=== PATIENT | male | born 1965 | race Caucasian/White ===

== ENCOUNTER 2019-07-15 17:15 | Observation (INO) ==
[2019-07-15 17:31] VITALS: BMI 29.2
--- NOTE | 2019-07-15 17:34 | CT ---
HISTORYVISUAL DISTURBANCE. HX CVASTUDYBRAIN W/O CONCOMPARISONPrevious head CT from 10/04/2016TECHNIQUEAxial imaging was performed from the vertex to the base of skull without intravenous contrast being administered. Sagittal and coronal reformations were generated. Automated exposure control techniques were used with this exam.FINDINGSThe posterior fossa and supratentorial region demonstrate no evidence of intracranial hemorrhage or extracerebral fluid collections. 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 There is mild dilatation of the ipsilateral frontal horn at the left lateral ventricle. An old lacunar infarct is also seen in the right basal ganglia. Patchy low density is present in a periventricular white matter distribution, consistent with chronic small vessel ischemia. On the bone windows, no acute bony abnormality is identified. Visualized aspect of the paranasal sinuses and mastoid air cells are clearIMPRESSIONNo acute intracranial abnormality is seen on this exam. Chronic findings as noted aboveElectronically signed by: JONY CORBETT (Jul 15, 2019 17:33:50)
[2019-07-15] MEDS ORDERED: CATAPRES TAB 0.2 MG PO ONE (17:39)
[2019-07-15] MEDS ORDERED: CATAPRES TAB 0.2 MG ONE (17:40)
--- NOTE | 2019-07-15 17:52 | DR.GENAD ---
HPI Time Seen Time Seen by Provider: 07/15/19 17:28 HPI Comment HPI Comment: PATIENT IS 54 YR OLD FEMALE IN ER WITH BLURRED VISSION AND DECREASE VISSION LEFT EYE 3 DAYS AGO THAT HAVE RESOLVED. TODAY, ATAXIA NOTED. HISTORY TIAS. NO FEVER. HAVING HEADACHE. NO TRAUMA. PATIENT IS WEAK. Complaint/Symptoms Chief Complaint Doctors Comments: BLURRED VISSION AND DECREASE VISION 3 DAYS AGO AND ATAXIA TODAY. Nurses notes reviewed Nurses Notes Review: Yes Source History Provided: Patient and Family Member Mode of Arrival Mode of Arrival: Stretcher Timing Came on: Suddenly Duration Duration: Constant Duration: Days Severity Severity: Moderate Modifying Factors Worsens:: TRYING TO WORK. Improves:: REST. Associated Signs and Symptoms Associated Signs and Symptoms: WEAKNESS. Other History Other History: HISTORY HYPERTENSION AND DM. ROS Review of Systems Constitutional: No Symptoms Reported and See HPI; negative Fever, Weakness and Fatigue Eyes: No Symptoms Reported, See HPI, Blurred Vision and Other (DECREASE VISION.); negative Photophobia and Diplopia ENTM: No Symptoms Reported and See HPI; negative Ear Pain, Nose Discharge, Nose Congestion and Throat Pain Respiratoy: See HPI and Short of Breath; negative Moist Cough and Wheezing Cardiovascular: No Symptoms Reported and See HPI; negative Chest Pain and Palpitations Gastrointestinal/Abdominal: No Symptoms Reported and See HPI; negative Abdominal Pain, Constipation, Diarrhea, Nausea and Vomiting Genitourinary: No Symptoms Reported and See HPI; negative Dysuria, Frequency and Hematuria Neurological: No Symptoms Reported, See HPI, Weakness and Problems Walking (IMBALANCE TODAY.) Musculoskeletal: No Symptoms Reported and See HPI; negative Back Pain and Muscle Pain Integumentary: No Symptoms Reported and See HPI; negative Change in Color, Rash and Juandice Hematologic/Lymphatic: No Symptoms Reported and See HPI; negative Easy Bruising and Swollen Glands Endocrine: No Symptoms Reported and See HPI; negative Increased Thirst, Increased Urine and Decreased Appetite Psychiatric: No Symptoms Reported and See HPI All Other Systems: Reviewed and Negative PE Vital Signs Vitals: Temperature 97.2 F Pulse Rate [Left Brachial] 64 Pulse Rate 69 Respiratory Rate 19 Blood Pressure [Left Arm] 153/94 Blood Pressure 143/82 O2 Sat by Pulse Oximetry 99 General Limitations: No Limitations General Appearance: Alert and In No Apparent Distress Head Head Exam: Normal Inspection Eyes Eye exam: Normal Appearance and PERRL; negative Scleral Icterus, Conjunctival Injection, Periorbital Swelling and Periorbital Tenderness ENT ENT Exam: Normal Exam, Normal Oropharynx, Normal External Ear Exam and TM's Normal Bilaterally External Ear Exam: Normal External Inspection; negative Mastoid Tenderness TM/Canal Exam: Bilateral: Normal Nose Exam: Normal Nose Exam; negative Sinus Tenderness, Nasal Deviation and Septal Hematoma Mouth Exam: Normal Inspection; negative Lip Swelling and Tongue Swelling Throat Exam: Normal Inspection; negative Tonsillar Erythema, Tonsillomegaly and Tonsillar Exudate Neck Neck Exam: Normal Inspection and Trachea Midline; negative Tenderness and Lymph adenopathy Chest Chest Inspection: Normal Inspection and Symmetric Chest Wall Rise; negative Tenderness Respiratory Respiratory Exam: Normal Lung Sounds Bilat; negative Accessory Muscle Use, Chest Wall Tenderness and Respiratory Distress Respiratory Exam: Bilateral: Clear to Auscultation Cardiovascular Cardiovascular Exam: Regular Rate, Normal Rhythm and Normal Heart Sounds; negative Systolic Murmur and Diastolic Murmur Abdominal Exam Abdominal Exam: Normal Inspection, Normal Bowel Sounds and Soft; negative Tenderness Extremities Extremities Exam: Normal Inspection and Normal Capillary Refill; negative Tenderness, Edema and Calf Tenderness Back Back Exam: Normal Inspection; negative Tenderness, (R) CVA Tenderness, (L) CVA Tenderness, Paraspinal Tenderness and Vertebral Tenderness Neurologic Neurological Exam: Alert, Oriented X3 and CN II-XII Intact; negative Motor Sensory Deficit Psychiatric Psychiatric Exam: Normal Affect and Normal Mood Skin Skin Exam: Warm, Dry, Intact and Normal Color MDM Additional Information Additional Information Obtained From: Family (SON.) Differential Diagnosis Differential Diagnosis: CVA, HYPERTENSIVE EMERGENCY, SD, TIA, PNEUMONIA, HYPERGLYCEMIA. COURSE Treatment Treatment: SEE ORDERS. Education/Counseling Education/Counseling: Patient and Family Educated On: Diagnosis and Needs for Follow Up ROR Labs Reviewed Laboratory Results Reviewed?: Yes Result Diagrams: 07/16/19 05:28 07/16/19 05:28 Laboratory: WBC 12.4 X10^3/uL (3.6-10.0) H 07/15/19 17:50 RBC 6.10 X10^6/uL (4.7-6.0) H 07/15/19 17:50 Hgb 19.1 g/dL (13.5-18.0) H* 07/15/19 17:50 Hct 54.2 % (42.0-54.0) H 07/15/19 17:50 MCV 88.8 fL (80.0-100.0) 07/15/19 17:50 MCH 31.3 pg (27.0-34.0) 07/15/19 17:50 MCHC 35.3 g/dL (33.0-35.0) H 07/15/19 17:50 RDW 13.5 % (11.6-16.5) 07/15/19 17:50 Plt Count 190 X10^3/uL (150.0-450.0) 07/15/19 17:50 MPV 8.8 fL (7.4-11.0) 07/15/19 17:50 Neut % (Auto) 71.9 % (42.0-75.0) 07/15/19 17:50 Lymph % (Auto) 20.9 % (21.0-51.0) L 07/15/19 17:50 Ralls % (Auto) 5.6 % (0.0-13.0) 07/15/19 17:50 Eos % (Auto) 0.9 % (0.9-2.9) 07/15/19 17:50 Baso % (Auto) 0.7 % (0.2-1.0) 07/15/19 17:50 Neut # (Auto) 8.9 x10^3/uL (2.2-4.8) H 07/15/19 17:50 Lymph # (Auto) 2.6 X10^3/uL (1.3-2.9) 07/15/19 17:50 Ralls # (Auto) 0.7 x10^3/uL (0.3-0.8) 07/15/19 17:50 Eos # (Auto) 0.1 x10^3/uL (0.0-0.2) 07/15/19 17:50 Baso # (Auto) 0.1 X10^3/uL (0.0-0.1) 07/15/19 17:50 Absolute Nucleated RBC 0.0 /100WBC 07/15/19 17:50 Sodium 134 mmol/L (136-145) L 07/15/19 17:50 Corrected Sodium 138 mmol/L (136-145) 07/15/19 17:50 Potassium 3.7 mmol/L (3.5-5.1) 07/15/19 17:50 Chloride 98 mmol/L (98-107) 07/15/19 17:50 Carbon Dioxide 26.2 mmol/L (21-32) 07/15/19 17:50 BUN 8 mg/dL (7-18) 07/15/19 17:50 Creatinine 1.00 mg/dL (0.70-1.30) 07/15/19 17:50 Est GFR (MDRD) Af Amer > 60 (>60) 07/15/19 17:50 Est GFR (MDRD) Non-Af > 60 (>60) 07/15/19 17:50 Glucose 287 mg/dL (65-99) H 07/15/19 17:50 Calcium 9.9 mg/dL (8.5-10.1) 07/15/19 17:50 Corrected Calcium TNP 07/15/19 17:50 Total Bilirubin 0.50 mg/dL (0.2-1.0) 07/15/19 17:50 AST 0 Units/L (15-37) L 07/15/19 17:50 ALT < 6 Units/L (12-78) L 07/15/19 17:50 Alkaline Phosphatase 54 Units/L (46-116) 07/15/19 17:50 Creatine Kinase 59 Units/L (39-308) 07/15/19 17:50 CK-MB (CK-2) 1.7 ng/mL (0-4.0) 07/15/19 17:50 CK/CKMB % Calc 2.9 % (<4) 07/15/19 17:50 Troponin I < 0.02 ng/mL (0-1.5) 07/15/19 17:50 Total Protein 7.0 g/dL (6.4-8.2) 07/15/19 17:50 Albumin 3.7 g/dL (3.4-5.0) 07/15/19 17:50 Globulin 3.3 g/dL (2.5-4.5) 07/15/19 17:50 Albumin/Globulin Ratio 1.1 Ratio (1.1-2.1) 07/15/19 17:50 Acetone, Semi-Quant Negative (NEGATIVE) 07/15/19 17:50 XRAY XRAY Interpreted by: Radiologist (REPORT NOTED AND DISCUSSED WITH PATIENT.) EKG Rate: 71 [place]: Normal Rhythm: NSR Block: IVCD ST: Nonsp Opioid Opioid Risk Tool Total: 0 Total Score Risk Category: Low Risk Copyright: Jorge A SAENZ predicting aberrant behaviors Diagnosis Discharge Problem: Polycythemia, Accelerated hypertension, Hyperglycemia Instructions Instructions: Fall Prevention in the Home, Adult, [id number] Hyperglycemia, Natx-bg-Ymie Steps to Quit Smoking, Reki-iu-Svji Type 2 Diabetes Mellitus, Self Care, Adult, [id number]-ud-[id number] Hypertension, Mgtr-ac-Tdqy Blood Glucose Monitoring, Adult Forms: Patient Portal
[2019-07-15 18:03] LABS: BASOPHILS # (AUTO) 0.1 X10^3/uL (0.0-0.1); BASOPHILS % (AUTO) 0.7 % (0.2-1.0); EOSINOPHILS # (AUTO) 0.1 x10^3/uL (0.0-0.2); MONOCYTES # (AUTO) 0.7 x10^3/uL (0.3-0.8); NEUTROPHILS # (AUTO) 8.9 x10^3/uL (2.2-4.8)
[2019-07-15 18:10] LABS: EOSINOPHILS % (AUTO) 0.9 % (0.9-2.9); HEMATOCRIT 54.2 % (42.0-54.0); LYMPHOCYTES # (AUTO) 2.6 X10^3/uL (1.3-2.9); LYMPHOCYTES % (AUTO) 20.9 % (21.0-51.0); MEAN CORPUSCULAR HEMOGLOBIN 31.3 pg (27.0-34.0); MEAN CORPUSCULAR HGB CONC 35.3 g/dL (33.0-35.0); MEAN CORPUSCULAR VOLUME 88.8 fL (80.0-100.0); MEAN PLATELET VOLUME 8.8 fL (7.4-11.0); MONOCYTES % (AUTO) 5.6 % (0.0-13.0); NEUTROPHILS % (AUTO) 71.9 % (42.0-75.0); PLATELET COUNT 190 X10^3/uL (150.0-450.0); RED CELL DISTRIBUTION WIDTH 13.5 % (11.6-16.5); WHITE BLOOD COUNT 12.4 X10^3/uL (3.6-10.0)
[2019-07-15 18:12] LABS: HEMOGLOBIN 19.1 g/dL (13.5-18.0)
[2019-07-15 18:30] LABS: BLOOD UREA NITROGEN 8 mg/dL (7-18); CALCIUM 9.9 mg/dL (8.5-10.1); CARBON DIOXIDE 26.2 mmol/L (21-32); CHLORIDE 98 mmol/L (98-107); COR NA(FOR HYPERGLY) 138 mmol/L (136-145); SODIUM 134 mmol/L (136-145); TROPONIN I < 0.02 ng/mL (0-1.5); eGFR NON BLACK RACES > 60 (>60)
[2019-07-15 18:33] LABS: ALANINE AMINOTRANSFERASE < 6 Units/L (12-78); ALBUMIN 3.7 g/dL (3.4-5.0); ALKALINE PHOSPHATASE 54 Units/L (46-116); CKMB % 2.9 % (<4); CREATINE KINASE 59 Units/L (39-308); CREATINE KINASE MB 1.7 ng/mL (0-4.0)
--- NOTE | 2019-07-15 18:34 | RAD ---
HISTORY:Shortness of breath, visual disturbanceStudy: Single view chestComparison:NoneFindings:No infiltrate, effusion, or pneumothorax identified .Cardiac and mediastinal contours are within normal limits .The soft tissues are intact .IMPRESSION:1. No acute cardiopulmonary abnormality.Electronically signed by: CADEN MUJICA (Jul 15, 2019 18:33:24)
[2019-07-15 18:42] LABS: ASPARTATE AMINO TRANSFERASE 0 Units/L (15-37)
[2019-07-15] MEDS ORDERED: VASOTEC INJ 2.5 MG VIAL IVP ONE (18:48)
[2019-07-15] MEDS ORDERED: NS 1000 ML 1,000 ML IV ONE (18:51)
[2019-07-15] MEDS ORDERED: NITROSTAT SL ONE (18:52)
[2019-07-15] MEDS ORDERED: NS 1000 ML 1,000 ML ONE (19:03)
[2019-07-15] MEDS ORDERED: VASOTEC INJ 2.5 MG VIAL ONE (19:04)
[2019-07-15 21:50] LABS: BILIRUBIN,URINE NEGATIVE (NEGATIVE); BLOOD/HEMOGLOBIN,URINE 1+ (NEGATIVE); GLUCOSE, URINE 4+ (NEGATIVE); KETONES,URINE 2+ (NEGATIVE); LEUKOCYTE ESTERASE ,URINE NEGATIVE (NEGATIVE); NITRITES,URINE NEGATIVE (NEGATIVE); PROTEIN,URINE 3+ (NEGATIVE); UROBILINOGEN,URINE NORMAL (NORMAL)
[2019-07-15 22:02] LABS: AMORPHOUS SEDIMENT,UR 1+ /HPF (NEGATIVE); APPEARANCE,URINE SLIGHTLY HAZY (CLEAR); BACTERIA,URINE TRACE /HPF (NEGATIVE); COLOR,URINE YELLOW (YELLOW); RBC,URINE 0-2 /HPF (0-3); SQUAMOUS EPITHELIAL CELL,UR RARE /HPF (NEGATIVE)
[2019-07-15 23:43] LABS: CKMB % 2.4 % (<4); CREATINE KINASE 62 Units/L (39-308); CREATINE KINASE MB 1.5 ng/mL (0-4.0); TROPONIN I < 0.02 ng/mL (0-1.5)
[2019-07-16] MEDS: HumuLIN R SUBCUT PRN ×2 (00:06→06:01)
[2019-07-16 06:21] LABS: ALANINE AMINOTRANSFERASE 12 Units/L (12-78); ALKALINE PHOSPHATASE 43 Units/L (46-116); ASPARTATE AMINO TRANSFERASE 8 Units/L (15-37); BLOOD UREA NITROGEN 11 mg/dL (7-18); CALCIUM 8.7 mg/dL (8.5-10.1); CARBON DIOXIDE 25.8 mmol/L (21-32); CHLORIDE 101 mmol/L (98-107); CHOL/HDL RATIO 10.4 (0.0-5.0); CHOLESTEROL 259 mg/dL (0-200); COR CA(FOR HYPOALB) 9.5 mg/dL (8.5-10.1); COR NA(FOR HYPERGLY) 141 mmol/L (136-145); CREATINE KINASE 40 Units/L (39-308); CREATINE KINASE MB 1.2 ng/mL (0-4.0); CREATININE 1.01 mg/dL (0.70-1.30); HDL CHOLESTEROL 25 mg/dL (40-60); SODIUM 136 mmol/L (136-145); TOTAL PROTEIN 5.7 g/dL (6.4-8.2); TRIGLYCERIDES 680 mg/dL (0-150); TROPONIN I < 0.02 ng/mL (0-1.5); eGFR NON BLACK RACES > 60 (>60)
[2019-07-16 06:30] LABS: BASOPHILS # (AUTO) 0.1 X10^3/uL (0.0-0.1); EOSINOPHILS # (AUTO) 0.2 x10^3/uL (0.0-0.2); EOSINOPHILS % (AUTO) 1.8 % (0.9-2.9); HEMATOCRIT 48.2 % (42.0-54.0); LYMPHOCYTES % (AUTO) 36.8 % (21.0-51.0); MEAN CORPUSCULAR HEMOGLOBIN 31.4 pg (27.0-34.0); MEAN CORPUSCULAR HGB CONC 35.2 g/dL (33.0-35.0); MEAN CORPUSCULAR VOLUME 89.1 fL (80.0-100.0); MEAN PLATELET VOLUME 9.2 fL (7.4-11.0); MONOCYTES # (AUTO) 0.6 x10^3/uL (0.3-0.8); MONOCYTES % (AUTO) 5.6 % (0.0-13.0); NEUTROPHILS % (AUTO) 54.8 % (42.0-75.0); PLATELET COUNT 168 X10^3/uL (150.0-450.0); RED BLOOD COUNT 5.41 X10^6/uL (4.7-6.0); RED CELL DISTRIBUTION WIDTH 13.9 % (11.6-16.5); WHITE BLOOD COUNT 10.8 X10^3/uL (3.6-10.0)
[2019-07-16] MEDS ORDERED: GLUCOPHAGE ONE (08:09)
[2019-07-16] MEDS ORDERED: PLAVIX PO SCH (09:00)
[2019-07-16] MEDS ORDERED: AMARYL TAB 4 MG PO SCH (09:00)
[2019-07-16] MEDS ORDERED: ASPIRIN EC 81 MG PO SCH (09:00)
[2019-07-16] MEDS ORDERED: GLUCOPHAGE PO SCH (09:00)
[2019-07-16] MEDS ORDERED: VASOTEC TAB 20 MG PO SCH (09:00)
[2019-07-16 12:43] VITALS: BP 116/57
[2019-07-16] MEDS ORDERED: SNACK - Diabetic Appropriate PO SCH (20:00)
== END 2019-07-16 12:30 | disposition home or self-care (01) ==
LOC: ICU 17:15 → ER 17:15 → ICU 22:50
PROVIDERS: ADMIT Obstetrics & Gynecology Obstetrics; ATTEND Obstetrics & Gynecology Obstetrics
CPT/HCPCS: 36415; 70450; 71010; 71045; 80053; 80061; 81001; 82009; 82550; 82553; 82728; 84484; 85025; 93005; 96365; 96374; 99195; 99284; A4216; G0378; J1815; J3490; J7030

== ENCOUNTER 2020-12-09 11:21 | Inpatient (IN) ==
[2020-12-09] MEDS ORDERED: ZOSYN VIAL 3.375 GRAMS 3.375 G in NS 100 ML IV + SPIKE MINIBAG* 100 ML IV ONE (12:20)
--- NOTE | 2020-12-09 12:24 | DR.EXTPAIN ---
HPI Time seen Time Seen by Provider: 12/09/20 12:22 PCP Primary Care Physician: Mert Complaint/Symptoms Chief Complaint Doctor Comments: 55 y/o male presents with left great toe being black for several months. Denies injury. Has a h/o DM, poor circulation. 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 Saw his PCP, Dr. sam, this AM, was sent here for further evaluation. Not c/o pain. States it bleeds at times. Chief Complaint:: Pt c/o " My only toe I've got has been black for several months." Pt states he has been seen for this several times and was told by Dr. Sam this am to come to ER. COVID-19 Coronavirus risk:travel/contact w/high risk person: No Has patient experienced Coronavirus symptoms: No Nurses notes reviewed Nurses Notes Review: Yes Source History Provided: Patient Mode of arrival Mode of Arrival: Wheelchair Timing Onset of Chief Complaint: 12/09/20 Associated signs and symptoms Associated Signs and Symptoms: None PMH PMH Past Medical History: Yes Past Medical History: Coronary Artery Disease, Dementia, Diabetes, Hypertension and DC Past Surgical History: Yes Surgical History: Angioplasty/Stents and Ortho Surgery Past Surgical History Comment: right aka Family History History of Family Medical Conditions: Yes Family Medical History: Diabetes Mellitus and Coronary Artery Disease Social History Does patient currently use any type of tobacco product: Yes Have you used tobacco products in the last 12 months: Yes Type of Tobacco Use: Cigarettes Does any household member use tobacco: No Alcohol Use: None Do you use any recreational Drugs:: No Lives With: Family Lives Where: Home Travel Risk Coronavirus risk:travel/contact w/high risk person: No Has patient experienced Coronavirus symptoms: No Infectious screening In the last 2 months have you had wt loss of >10#?: NO Have you had fever, night sweats or hemotysis?: No Have you traveled outside the country in the last 6 months?: No Isolation: Standard ROS Review of Systems Constitutional: No Symptoms Reported Eyes: No Symptoms Reported ENTM: No Symptoms Reported Respiratoy: No Symptoms Reported Cardiovascular: No Symptoms Reported Gastrointestinal/Abdominal: No Symptoms Reported Genitourinary: No Symptoms Reported Neurological: No Symptoms Reported Musculoskeletal: No Symptoms Reported Integumentary: No Symptoms Reported Hematologic/Lymphatic: No Symptoms Reported Psychiatric: No Symptoms Reported All Other Systems: Reviewed and Negative PE Vital Signs Vitals: Temperature 97.7 F Pulse Rate 83 Respiratory Rate 16 Blood Pressure [Left Arm] 168/86 Blood Pressure 100/67 O2 Sat by Pulse Oximetry 98 General Limitations: No Limitations General Appearance: Alert and In No Apparent Distress Eyes Eye exam: Normal Appearance ENT ENT Exam: Normal Exam Neck Neck Exam: Normal Inspection and Full ROM Respiratory Respiratory Exam: Normal Lung Sounds Bilat; negative Accessory Muscle Use and Respiratory Distress Cardiovascular Cardiovascular Exam: Regular Rate, Normal Rhythm and Normal Heart Sounds Abdominal Exam Abdominal Exam: Normal Inspection; negative Tenderness Extremities Extremities Exam: Other (R AKA. L great toe - with black distal phalanx, non tender. ) Neurological Neurological Exam: Alert, Oriented X3 and CN II-XII Intact Psychiatric Psychiatric Exam: Normal Affect Skin Skin Exam: Warm and Dry MDM Differential Diagnosis Differential Diagnosis: Other (gangrene, cellulitis, osteomyelitis) COURSE Treatment Treatment: 55 y/o male, has a black left great toe x months. Sent in by Dr. Sam, planning to admit. CTA of aorta with run off requested by Dr. Sam. Had same procedure done 2 months ago. Discussed case with Dr. Light. Reviewed the findings of the previous CTA with him, states do not need to repeat the study. 1402 - x-ray with some gas formation of great toe, + changes c/w osteomyelitis. Already give IV antibiotic after initial evaluation. Discussed with Dr. Sam, will admit. Consulted with Dr. Fitzgerald, will consult. ROR Labs Reviewed Laboratory Results Reviewed?: Yes Result Diagrams: 12/09/20 12:40 12/09/20 12:40 Laboratory: WBC 17.0 X10^3/uL (3.6-10.0) H 12/09/20 12:40 RBC 5.86 X10^6/uL (4.7-6.0) 12/09/20 12:40 Hgb 16.6 g/dL (13.5-18.0) 12/09/20 12:40 Hct 48.7 % (42.0-54.0) 12/09/20 12:40 MCV 83.1 fL (80.0-100.0) 12/09/20 12:40 MCH 28.4 pg (27.0-34.0) 12/09/20 12:40 MCHC 34.2 g/dL (33.0-35.0) 12/09/20 12:40 RDW 14.3 % (11.6-16.5) 12/09/20 12:40 Plt Count 204 X10^3/uL (150.0-450.0) 12/09/20 12:40 MPV 8.9 fL (7.4-11.0) 12/09/20 12:40 Neut % (Auto) 76.5 % (42.0-75.0) H 12/09/20 12:40 Lymph % (Auto) 15.8 % (21.0-51.0) L 12/09/20 12:40 [place] % (Auto) 6.3 % (0.0-13.0) 12/09/20 12:40 Eos % (Auto) 0.7 % (0.9-2.9) L 12/09/20 12:40 Baso % (Auto) 0.7 % (0.2-1.0) 12/09/20 12:40 Neut # (Auto) 12.9 x10^3/uL (2.2-4.8) H 12/09/20 12:40 Lymph # (Auto) 2.7 X10^3/uL (1.3-2.9) 12/09/20 12:40 [place] # (Auto) 1.1 x10^3/uL (0.3-0.8) H 12/09/20 12:40 Eos # (Auto) 0.1 x10^3/uL (0.0-0.2) 12/09/20 12:40 Baso # (Auto) 0.1 X10^3/uL (0.0-0.1) 12/09/20 12:40 Absolute Nucleated RBC 0.0 /100WBC 12/09/20 12:40 PT 12.2 SECONDS (11.8-14.3) 12/09/20 12:40 INR Target Range - 12/09/20 12:40 INR 0.95 (0.8-1.3) 12/09/20 12:40 APTT 29.2 SECONDS (22.9-36.5) 12/09/20 12:40 PTT Comment - 12/09/20 12:40 Sodium 135 mmol/L (136-145) L 12/09/20 12:40 Corrected Sodium 143 mmol/L (136-145) 12/09/20 12:40 Potassium 4.2 mmol/L (3.5-5.1) 12/09/20 12:40 Chloride 97 mmol/L (98-107) L 12/09/20 12:40 Carbon Dioxide 25.5 mmol/L (21-32) 12/09/20 12:40 BUN 18 mg/dL (7-18) 12/09/20 12:40 Creatinine 1.08 mg/dL (0.70-1.30) 12/09/20 12:40 Est GFR (MDRD) Af Amer > 60 (>60) 12/09/20 12:40 Est GFR (MDRD) Non-Af > 60 (>60) 12/09/20 12:40 Glucose 426 mg/dL (65-99) H 12/09/20 12:40 Calcium 9.3 mg/dL (8.5-10.1) 12/09/20 12:40 Corrected Calcium TNP 12/09/20 12:40 Total Bilirubin 0.50 mg/dL (0.2-1.0) 12/09/20 12:40 AST < 6 Units/L (15-37) L 12/09/20 12:40 ALT 18 Units/L (12-78) 12/09/20 12:40 Alkaline Phosphatase 86 Units/L (46-116) 12/09/20 12:40 Total Protein 7.7 g/dL (6.4-8.2) 12/09/20 12:40 Albumin 3.5 g/dL (3.4-5.0) 12/09/20 12:40 Globulin 4.2 g/dL (2.5-4.5) 12/09/20 12:40 Albumin/Globulin Ratio 0.8 Ratio (1.1-2.1) L 12/09/20 12:40 SARS-CoV-2 (PCR) Negative (NEGATIVE) 12/09/20 12:48 Influenza Type A (PCR) Negative (NEGATIVE) 12/09/20 12:48 Influenza Type B (PCR) Negative (NEGATIVE) 12/09/20 12:48 RSV (PCR) Negative (NEGATIVE) 12/09/20 12:48 XRAY XRAY Interpreted by: Radiologist X-ray Results: + ostemyelitis of great toe Opioid Opioid Risk Tool Age (Jagjit box if 16-45): No History of Preadolescent Sexual Abuse: No Total: 0 Total Score Risk Category: Low Risk Copyright: Jorge A SAENZ predicting aberrant behaviors Diagnosis Discharge Problem: Gangrene of toe of left foot, Osteomyelitis of great toe of left foot
[2020-12-09 12:51] LABS: BASOPHILS # (AUTO) 0.1 X10^3/uL (0.0-0.1); BASOPHILS % (AUTO) 0.7 % (0.2-1.0); EOSINOPHILS # (AUTO) 0.1 x10^3/uL (0.0-0.2); EOSINOPHILS % (AUTO) 0.7 % (0.9-2.9); HEMATOCRIT 48.7 % (42.0-54.0); HEMOGLOBIN 16.6 g/dL (13.5-18.0); LYMPHOCYTES # (AUTO) 2.7 X10^3/uL (1.3-2.9); LYMPHOCYTES % (AUTO) 15.8 % (21.0-51.0); MEAN CORPUSCULAR HEMOGLOBIN 28.4 pg (27.0-34.0); MEAN CORPUSCULAR HGB CONC 34.2 g/dL (33.0-35.0); MEAN CORPUSCULAR VOLUME 83.1 fL (80.0-100.0); MEAN PLATELET VOLUME 8.9 fL (7.4-11.0); MONOCYTES # (AUTO) 1.1 x10^3/uL (0.3-0.8); MONOCYTES % (AUTO) 6.3 % (0.0-13.0); NEUTROPHILS # (AUTO) 12.9 x10^3/uL (2.2-4.8); NEUTROPHILS % (AUTO) 76.5 % (42.0-75.0); PLATELET COUNT 204 X10^3/uL (150.0-450.0); RED BLOOD COUNT 5.86 X10^6/uL (4.7-6.0); RED CELL DISTRIBUTION WIDTH 14.3 % (11.6-16.5)
[2020-12-09] MEDS ORDERED: ZOSYN VIAL 3.375 GRAMS IV ONE (12:54)
[2020-12-09] MEDS ORDERED: NS 100 ML IV + SPIKE MINIBAG* 100 ML IV ONE (12:54)
[2020-12-09 13:19] LABS: BLOOD UREA NITROGEN 18 mg/dL (7-18); CALCIUM 9.3 mg/dL (8.5-10.1); CARBON DIOXIDE 25.5 mmol/L (21-32); CHLORIDE 97 mmol/L (98-107); COR NA(FOR HYPERGLY) 143 mmol/L (136-145); CREATININE 1.08 mg/dL (0.70-1.30); SODIUM 135 mmol/L (136-145); eGFR NON BLACK RACES > 60 (>60)
--- NOTE | 2020-12-09 13:30 | RAD ---
HISTORYBLACK GREAT TOESTUDYFOOT, [id number]/2021FINDINGSThere is soft tissue swelling, ulceration and soft tissue gas within the distal great toe. There is underlying osteolysis as well as fracture of the great toe distal tuft, compatible with osteomyelitis.No subchondral bone plate destruction of the great toe IP joint is currently appreciated to suggest septic arthritis. Mild hindfoot enthesopathy and DJD of the dorsal talonavicular joint noted.IMPRESSIONUlceration and gas gangrene of the distal great toe with underlying fracture and osteolysis of the great toe distal tuft, compatible with osteomyelitis.Recommend contrast enhanced MRI (of the forefoot only) to evaluate the extent of bone infection.Electronically signed by: SHERRELL CHAVEZ (Dec 09, 2020 13:28:39)
[2020-12-09] MEDS ORDERED: ZOFRAN INJ 4 MG VIAL ONE (14:06)
[2020-12-09] MEDS ORDERED: VERSED ONE ×2 (14:06)
[2020-12-09] MEDS ORDERED: DECADRON INJ ONE (14:06)
[2020-12-09] MEDS ORDERED: NORCURON INJ 10 MG VIAL ONE (14:06)
[2020-12-09] MEDS ORDERED: DIPRIVAN VIAL ONE ×2 (14:06)
[2020-12-09] MEDS ORDERED: TORADOL 30 MG VIAL ONE (14:06)
[2020-12-09] MEDS ORDERED: XYLOCAINE 1 % (PLAIN) ONE (14:06)
[2020-12-09 14:07] LABS: ALANINE AMINOTRANSFERASE 18 Units/L (12-78); ALBUMIN 3.5 g/dL (3.4-5.0); ALKALINE PHOSPHATASE 86 Units/L (46-116); ASPARTATE AMINO TRANSFERASE < 6 Units/L (15-37); TOTAL PROTEIN 7.7 g/dL (6.4-8.2)
[2020-12-09] MEDS ORDERED: KETALAR ONE (14:46)
[2020-12-09] MEDS: ZOSYN VIAL 2.25 GRAMS 2.25 G in NS 100 ML IV + SPIKE MINIBAG* 100 ML IV SCH ×2 (16:34→22:06)
[2020-12-09] MEDS: LR 1000 ML IV 1,000 ML IV SCH (16:46)
[2020-12-09] MEDS: ACTOS PO SCH (16:46)
[2020-12-09] MEDS: HumuLIN R SC PRN ×2 (16:46→20:14)
[2020-12-09] MEDS ORDERED: PHARMACY CONSULT - VANCOMYCIN XX SCH (17:00)
[2020-12-09] MEDS: VANCOMYCIN IV *PREMIX 1 G/200 ML BAG 1 G/200 ML PIGGYBACK IV SCH ×2 (17:35→20:13)
[2020-12-10] MEDS: LR 1000 ML IV 1,000 ML IV SCH ×5 (04:47→16:50)
[2020-12-10] MEDS: ZOSYN VIAL 2.25 GRAMS 2.25 G in NS 100 ML IV + SPIKE MINIBAG* 100 ML IV SCH ×3 (06:22→23:00)
[2020-12-10 06:23] LABS: BASOPHILS # (AUTO) 0.1 X10^3/uL (0.0-0.1); BASOPHILS % (AUTO) 0.6 % (0.2-1.0); EOSINOPHILS # (AUTO) 0.3 x10^3/uL (0.0-0.2); EOSINOPHILS % (AUTO) 2.2 % (0.9-2.9); HEMATOCRIT 43.3 % (42.0-54.0); HEMOGLOBIN 15.2 g/dL (13.5-18.0); LYMPHOCYTES # (AUTO) 2.9 X10^3/uL (1.3-2.9); LYMPHOCYTES % (AUTO) 21.7 % (21.0-51.0); MEAN CORPUSCULAR HEMOGLOBIN 28.8 pg (27.0-34.0); MEAN CORPUSCULAR HGB CONC 35.1 g/dL (33.0-35.0); MEAN CORPUSCULAR VOLUME 82.1 fL (80.0-100.0); MEAN PLATELET VOLUME 8.9 fL (7.4-11.0); MONOCYTES # (AUTO) 1.2 x10^3/uL (0.3-0.8); MONOCYTES % (AUTO) 9.1 % (0.0-13.0); NEUTROPHILS % (AUTO) 66.4 % (42.0-75.0); PLATELET COUNT 171 X10^3/uL (150.0-450.0); RED BLOOD COUNT 5.27 X10^6/uL (4.7-6.0); RED CELL DISTRIBUTION WIDTH 14.2 % (11.6-16.5); WHITE BLOOD COUNT 13.5 X10^3/uL (3.6-10.0)
[2020-12-10] MEDS: HumuLIN R SC PRN ×2 (06:23→20:19)
[2020-12-10 06:56] LABS: ALANINE AMINOTRANSFERASE 13 Units/L (12-78); ALBUMIN 2.8 g/dL (3.4-5.0); ALKALINE PHOSPHATASE 68 Units/L (46-116); ASPARTATE AMINO TRANSFERASE 7 Units/L (15-37); BLOOD UREA NITROGEN 12 mg/dL (7-18); CALCIUM 8.9 mg/dL (8.5-10.1); CARBON DIOXIDE 24.2 mmol/L (21-32); CHLORIDE 103 mmol/L (98-107); COR CA(FOR HYPOALB) 9.9 mg/dL (8.5-10.1); COR NA(FOR HYPERGLY) 140 mmol/L (136-145); CREATININE 0.84 mg/dL (0.70-1.30); SODIUM 135 mmol/L (136-145); TOTAL PROTEIN 6.4 g/dL (6.4-8.2); eGFR NON BLACK RACES > 60 (>60)
[2020-12-10] MEDS: ACTOS PO SCH (08:31)
[2020-12-10] MEDS: INVOKANA PO SCH (08:35)
[2020-12-10] MEDS: GLUCOPHAGE XR 24-HR PO SCH ×2 (08:44→20:18)
[2020-12-10 09:00] VITALS: BMI 20.3
[2020-12-10] MEDS: VANCOMYCIN IV *PREMIX 1 G/200 ML BAG 1 G/200 ML PIGGYBACK IV SCH ×2 (09:13→21:30)
[2020-12-10] MEDS ORDERED: NS 1000 ML 1,000 ML ONE (11:18)
[2020-12-10] MEDS ORDERED: POLYMYXIN B SULFATE ONE (12:00)
[2020-12-10] MEDS ORDERED: XYLOCAINE 1 % (PLAIN) ONE (12:00)
[2020-12-10] MEDS ORDERED: BETADINE SOLN ONE (12:03)
[2020-12-10] MEDS ORDERED: BACTROBAN TOPICAL OINT ONE (12:40)
[2020-12-10] MEDS ORDERED: PHARMACY COMMENT IV NR (20:30)
[2020-12-10 21:00] LABS: CREATININE 0.92 mg/dL (0.70-1.30)
[2020-12-11] MEDS: LR 1000 ML IV 1,000 ML IV SCH ×4 (00:45→21:41)
[2020-12-11] MEDS ORDERED: NORCO 5/325 MG TAB PO ONE (00:53)
[2020-12-11] MEDS ORDERED: NORCO 5/325 MG TAB ONE (00:57)
[2020-12-11] MEDS: HumuLIN R SC PRN (05:23)
[2020-12-11] MEDS: ZOSYN VIAL 2.25 GRAMS 2.25 G in NS 100 ML IV + SPIKE MINIBAG* 100 ML IV SCH ×3 (05:23→23:03)
[2020-12-11 06:21] LABS: BASOPHILS # (AUTO) 0.1 X10^3/uL (0.0-0.1); BASOPHILS % (AUTO) 0.9 % (0.2-1.0); EOSINOPHILS # (AUTO) 0.2 x10^3/uL (0.0-0.2); EOSINOPHILS % (AUTO) 1.4 % (0.9-2.9); LYMPHOCYTES % (AUTO) 22.5 % (21.0-51.0); MEAN CORPUSCULAR HEMOGLOBIN 28.5 pg (27.0-34.0); MEAN CORPUSCULAR HGB CONC 34.9 g/dL (33.0-35.0); MEAN CORPUSCULAR VOLUME 81.7 fL (80.0-100.0); MEAN PLATELET VOLUME 8.9 fL (7.4-11.0); MONOCYTES # (AUTO) 1.1 x10^3/uL (0.3-0.8); NEUTROPHILS # (AUTO) 9.1 x10^3/uL (2.2-4.8); NEUTROPHILS % (AUTO) 67.2 % (42.0-75.0); PLATELET COUNT 208 X10^3/uL (150.0-450.0); RED BLOOD COUNT 5.63 X10^6/uL (4.7-6.0); RED CELL DISTRIBUTION WIDTH 14.4 % (11.6-16.5); WHITE BLOOD COUNT 13.5 X10^3/uL (3.6-10.0)
[2020-12-11 06:27] LABS: ALANINE AMINOTRANSFERASE 11 Units/L (12-78); ALKALINE PHOSPHATASE 66 Units/L (46-116); ASPARTATE AMINO TRANSFERASE 10 Units/L (15-37); BLOOD UREA NITROGEN 12 mg/dL (7-18); CALCIUM 9.3 mg/dL (8.5-10.1); CARBON DIOXIDE 27.3 mmol/L (21-32); CHLORIDE 103 mmol/L (98-107); COR CA(FOR HYPOALB) 10.1 mg/dL (8.5-10.1); COR NA(FOR HYPERGLY) 139 mmol/L (136-145); CREATININE 0.88 mg/dL (0.70-1.30); SODIUM 137 mmol/L (136-145); TOTAL PROTEIN 6.8 g/dL (6.4-8.2); eGFR NON BLACK RACES > 60 (>60)
[2020-12-11] MEDS: GLUCOPHAGE XR 24-HR PO SCH ×3 (08:56→21:47)
[2020-12-11] MEDS: VANCOMYCIN IV *PREMIX 1 G/200 ML BAG 1 G/200 ML PIGGYBACK IV SCH ×2 (08:56→21:42)
[2020-12-11] MEDS: ACTOS PO SCH (08:56)
[2020-12-11] MEDS: INVOKANA PO SCH (08:56)
[2020-12-11] MEDS ORDERED: BACTROBAN TOPICAL OINT ONE (10:24)
[2020-12-11] MEDS ORDERED: BACTROBAN CREAM TOP PRN (10:48)
--- NOTE | 2020-12-11 12:20 | DR.PROGNOT ---
Hospital Progress Notes - Progress Note for Day of: Progress Note Date: 12/11/20 - Chief Complaint Chief Complaint: PO amputation of the great toe and 1st metatarsal head Lt foot . no c/o . A1C 11.8 ..WBC 13 ..BS. temp 98 .. dressing was changed : no ischemia , infection or necrosis . - Past Medical Family Social History Past Med/Fam/Surg Hx: No changes since H&P Allergies: Allergies No Known Drug Allergies Allergy (Verified 09/28/20 18:05) - Review Of Systems ROS: No change since H&P - Vital Signs Vital Signs: Temperature 97.2 F Pulse Rate [Bilateral Radial] 65 Pulse Rate 61 Respiratory Rate 18 Blood Pressure [Right Arm] 139/78 Blood Pressure [Left Arm] 168/86 Blood Pressure 162/90 O2 Sat by Pulse Oximetry 97 - Physical Exam Oriented: Normal Eyes: Normal Ear: Normal Nose: Normal Throat: Normal Respiratory: Normal Cardiovascular: Normal Skin: Other (clean incision Lt foot . palpable dorsalis pedis and posterior tibial with doppler .) Mood Description: Calm Speech Pattern: Clear, Appropriate - Laboratory and Diagnostics Result Diagrams: 12/11/20 05:27 12/11/20 05:27 Labs: Laboratory WBC 13.5 X10^3/uL (3.6-10.0) H 12/11/20 05:27 RBC 5.63 X10^6/uL (4.7-6.0) 12/11/20 05:27 Hgb 16.0 g/dL (13.5-18.0) 12/11/20 05:27 Hct 46.0 % (42.0-54.0) 12/11/20 05:27 MCV 81.7 fL (80.0-100.0) 12/11/20 05:27 MCH 28.5 pg (27.0-34.0) 12/11/20 05:27 MCHC 34.9 g/dL (33.0-35.0) 12/11/20 05:27 RDW 14.4 % (11.6-16.5) 12/11/20 05:27 Plt Count 208 X10^3/uL (150.0-450.0) 12/11/20 05:27 MPV 8.9 fL (7.4-11.0) 12/11/20 05:27 Neut % (Auto) 67.2 % (42.0-75.0) 12/11/20 05:27 Lymph % (Auto) 22.5 % (21.0-51.0) 12/11/20 05:27 [place] % (Auto) 8.0 % (0.0-13.0) 12/11/20 05:27 Eos % (Auto) 1.4 % (0.9-2.9) 12/11/20 05:27 Baso % (Auto) 0.9 % (0.2-1.0) 12/11/20 05:27 Neut # (Auto) 9.1 x10^3/uL (2.2-4.8) H 12/11/20 05:27 Lymph # (Auto) 3.0 X10^3/uL (1.3-2.9) H 12/11/20 05:27 [place] # (Auto) 1.1 x10^3/uL (0.3-0.8) H 12/11/20 05:27 Eos # (Auto) 0.2 x10^3/uL (0.0-0.2) 12/11/20 05:27 Baso # (Auto) 0.1 X10^3/uL (0.0-0.1) 12/11/20 05:27 Absolute Nucleated RBC 0.1 /100WBC 12/11/20 05:27 PT 12.2 SECONDS (11.8-14.3) 12/09/20 12:40 INR Target Range - 12/09/20 12:40 INR 0.95 (0.8-1.3) 12/09/20 12:40 APTT 29.2 SECONDS (22.9-36.5) 12/09/20 12:40 PTT Comment - 12/09/20 12:40 Sodium 137 mmol/L (136-145) 12/11/20 05:27 Corrected Sodium 139 mmol/L (136-145) 12/11/20 05:27 Potassium 4.0 mmol/L (3.5-5.1) 12/11/20 05:27 Chloride 103 mmol/L (98-107) 12/11/20 05:27 Carbon Dioxide 27.3 mmol/L (21-32) 12/11/20 05:27 BUN 12 mg/dL (7-18) 12/11/20 05:27 Creatinine 0.88 mg/dL (0.70-1.30) 12/11/20 05:27 Est GFR (MDRD) Af Amer > 60 (>60) 12/11/20 05:27 Est GFR (MDRD) Non-Af > 60 (>60) 12/11/20 05:27 Glucose 187 mg/dL (65-99) H 12/11/20 05:27 POC Glucose (mg/dL) 179 mg/dL (65-99) H 12/11/20 11:04 Hemoglobin A1c 11.8 % 12/11/20 05:27 Calcium 9.3 mg/dL (8.5-10.1) 12/11/20 05:27 Corrected Calcium 10.1 mg/dL (8.5-10.1) 12/11/20 05:27 Total Bilirubin 0.40 mg/dL (0.2-1.0) 12/11/20 05:27 AST 10 Units/L (15-37) L 12/11/20 05:27 ALT 11 Units/L (12-78) L 12/11/20 05:27 Alkaline Phosphatase 66 Units/L (46-116) 12/11/20 05:27 Total Protein 6.8 g/dL (6.4-8.2) 12/11/20 05:27 Albumin 3.0 g/dL (3.4-5.0) L 12/11/20 05:27 Globulin 3.8 g/dL (2.5-4.5) 12/11/20 05:27 Albumin/Globulin Ratio 0.8 Ratio (1.1-2.1) L 12/11/20 05:27 Vancomycin Trough 12.0 ug/mL (15-20) L 12/10/20 20:14 SARS-CoV-2 (PCR) Negative (NEGATIVE) 12/09/20 12:48 Influenza Type A (PCR) Negative (NEGATIVE) 12/09/20 12:48 Influenza Type B (PCR) Negative (NEGATIVE) 12/09/20 12:48 RSV (PCR) Negative (NEGATIVE) 12/09/20 12:48 Tissue Pathology To follow 12/10/20 12:20 - Assessment and Plan 1: post op great toe amputation Lt foot for gangrenous toe . DM . diabetic neuropathy . PVD . same plan . - Problem Patient Problems: Patient Problems Gangrene of toe of left foot (Acute) I96 Osteomyelitis of great toe of left foot (Acute) M86.9
[2020-12-11] MEDS: NORCO 7.5/325 MG TAB PO PRN (13:12)
[2020-12-12] MEDS: ZOSYN VIAL 2.25 GRAMS 2.25 G in NS 100 ML IV + SPIKE MINIBAG* 100 ML IV SCH ×3 (05:43→22:15)
[2020-12-12 06:17] LABS: BASOPHILS # (AUTO) 0.1 X10^3/uL (0.0-0.1); BASOPHILS % (AUTO) 0.9 % (0.2-1.0); EOSINOPHILS # (AUTO) 0.2 x10^3/uL (0.0-0.2); HEMOGLOBIN 14.9 g/dL (13.5-18.0); LYMPHOCYTES # (AUTO) 2.5 X10^3/uL (1.3-2.9); LYMPHOCYTES % (AUTO) 21.2 % (21.0-51.0); MEAN CORPUSCULAR HEMOGLOBIN 28.1 pg (27.0-34.0); MEAN CORPUSCULAR HGB CONC 34.6 g/dL (33.0-35.0); MEAN CORPUSCULAR VOLUME 81.2 fL (80.0-100.0); MEAN PLATELET VOLUME 8.7 fL (7.4-11.0); MONOCYTES # (AUTO) 0.9 x10^3/uL (0.3-0.8); NEUTROPHILS % (AUTO) 67.9 % (42.0-75.0); PLATELET COUNT 197 X10^3/uL (150.0-450.0); RED CELL DISTRIBUTION WIDTH 14.2 % (11.6-16.5); WHITE BLOOD COUNT 11.8 X10^3/uL (3.6-10.0)
[2020-12-12 06:25] LABS: ALANINE AMINOTRANSFERASE 12 Units/L (12-78); ALBUMIN 2.8 g/dL (3.4-5.0); ALKALINE PHOSPHATASE 60 Units/L (46-116); ASPARTATE AMINO TRANSFERASE 9 Units/L (15-37); BLOOD UREA NITROGEN 12 mg/dL (7-18); CARBON DIOXIDE 26.5 mmol/L (21-32); CHLORIDE 103 mmol/L (98-107); COR NA(FOR HYPERGLY) 138 mmol/L (136-145); CREATININE 0.92 mg/dL (0.70-1.30); SODIUM 137 mmol/L (136-145); TOTAL PROTEIN 6.6 g/dL (6.4-8.2); eGFR NON BLACK RACES > 60 (>60)
[2020-12-12] MEDS: LR 1000 ML IV 1,000 ML IV SCH ×3 (07:27→16:32)
[2020-12-12] MEDS: INVOKANA PO SCH (08:39)
[2020-12-12] MEDS: ZESTRIL TAB 40 MG PO SCH (08:39)
[2020-12-12] MEDS: ACTOS PO SCH (08:39)
[2020-12-12] MEDS ORDERED: GLUCOPHAGE XR 24-HR PO SCH (09:00)
[2020-12-12 09:03] LABS: CREATININE 1.04 mg/dL (0.70-1.30); VANCOMYCIN,TROUGH 13.7 ug/mL (15-20)
[2020-12-12] MEDS ORDERED: GLUCOPHAGE ONE ×2 (09:26→20:46)
[2020-12-12] MEDS: GLUCOPHAGE PO SCH ×2 (09:39→21:30)
[2020-12-12] MEDS: VANCOMYCIN IV *PREMIX 1 G/200 ML BAG 1 G/200 ML PIGGYBACK IV SCH ×2 (09:39→21:33)
--- NOTE | 2020-12-12 11:10 | DR.PROGNOT ---
Hospital Progress Notes - Progress Note for Day of: Progress Note Date: 12/12/20 - Chief Complaint Chief Complaint: PO amputation of the great toe and 1st metatarsal head Lt foot . no c/o . BS 119... WBC 11.. dressing was changed : no ischemia , infection or necrosis . - Past Medical Family Social History Past Med/Fam/Surg Hx: No changes since H&P Allergies: Allergies No Known Drug Allergies Allergy (Verified 09/28/20 18:05) - Review Of Systems ROS: No change since H&P - Vital Signs Vital Signs: Temperature 98.0 F Pulse Rate [Bilateral Radial] 61 Pulse Rate 61 Respiratory Rate 18 Blood Pressure [Right Arm] 158/78 Blood Pressure [Left Arm] 168/86 Blood Pressure 162/90 O2 Sat by Pulse Oximetry 98 - Physical Exam Oriented: Normal Eyes: Normal Ear: Normal Nose: Normal Throat: Normal Respiratory: Normal Cardiovascular: Normal Skin: Other (clean incision Lt foot . palpable dorsalis pedis and posterior tibial with doppler .) Mood Description: Calm Speech Pattern: Clear, Appropriate - Laboratory and Diagnostics Result Diagrams: 12/12/20 05:48 12/12/20 08:28 Labs: Laboratory WBC 11.8 X10^3/uL (3.6-10.0) H 12/12/20 05:48 RBC 5.30 X10^6/uL (4.7-6.0) 12/12/20 05:48 Hgb 14.9 g/dL (13.5-18.0) 12/12/20 05:48 Hct 43.0 % (42.0-54.0) 12/12/20 05:48 MCV 81.2 fL (80.0-100.0) 12/12/20 05:48 MCH 28.1 pg (27.0-34.0) 12/12/20 05:48 MCHC 34.6 g/dL (33.0-35.0) 12/12/20 05:48 RDW 14.2 % (11.6-16.5) 12/12/20 05:48 Plt Count 197 X10^3/uL (150.0-450.0) 12/12/20 05:48 MPV 8.7 fL (7.4-11.0) 12/12/20 05:48 Neut % (Auto) 67.9 % (42.0-75.0) 12/12/20 05:48 Lymph % (Auto) 21.2 % (21.0-51.0) 12/12/20 05:48 [place] % (Auto) 8.0 % (0.0-13.0) 12/12/20 05:48 Eos % (Auto) 2.0 % (0.9-2.9) 12/12/20 05:48 Baso % (Auto) 0.9 % (0.2-1.0) 12/12/20 05:48 Neut # (Auto) 8.0 x10^3/uL (2.2-4.8) H 12/12/20 05:48 Lymph # (Auto) 2.5 X10^3/uL (1.3-2.9) 12/12/20 05:48 [place] # (Auto) 0.9 x10^3/uL (0.3-0.8) H 12/12/20 05:48 Eos # (Auto) 0.2 x10^3/uL (0.0-0.2) 12/12/20 05:48 Baso # (Auto) 0.1 X10^3/uL (0.0-0.1) 12/12/20 05:48 Absolute Nucleated RBC 0.0 /100WBC 12/12/20 05:48 PT 12.2 SECONDS (11.8-14.3) 12/09/20 12:40 INR Target Range - 12/09/20 12:40 INR 0.95 (0.8-1.3) 12/09/20 12:40 APTT 29.2 SECONDS (22.9-36.5) 12/09/20 12:40 PTT Comment - 12/09/20 12:40 Sodium 137 mmol/L (136-145) 12/12/20 05:48 Corrected Sodium 138 mmol/L (136-145) 12/12/20 05:48 Potassium 3.7 mmol/L (3.5-5.1) 12/12/20 05:48 Chloride 103 mmol/L (98-107) 12/12/20 05:48 Carbon Dioxide 26.5 mmol/L (21-32) 12/12/20 05:48 BUN 12 mg/dL (7-18) 12/12/20 05:48 Creatinine 1.04 mg/dL (0.70-1.30) 12/12/20 08:28 Est GFR (MDRD) Af Amer > 60 (>60) 12/12/20 05:48 Est GFR (MDRD) Non-Af > 60 (>60) 12/12/20 05:48 Glucose 135 mg/dL (65-99) H 12/12/20 05:48 POC Glucose (mg/dL) 119 mg/dL (65-99) H 12/12/20 11:07 Hemoglobin A1c 11.8 % 12/11/20 05:27 Calcium 9.0 mg/dL (8.5-10.1) 12/12/20 05:48 Corrected Calcium 10.0 mg/dL (8.5-10.1) 12/12/20 05:48 Total Bilirubin 0.70 mg/dL (0.2-1.0) 12/12/20 05:48 AST 9 Units/L (15-37) L 12/12/20 05:48 ALT 12 Units/L (12-78) 12/12/20 05:48 Alkaline Phosphatase 60 Units/L (46-116) 12/12/20 05:48 Total Protein 6.6 g/dL (6.4-8.2) 12/12/20 05:48 Albumin 2.8 g/dL (3.4-5.0) L 12/12/20 05:48 Globulin 3.8 g/dL (2.5-4.5) 12/12/20 05:48 Albumin/Globulin Ratio 0.7 Ratio (1.1-2.1) L 12/12/20 05:48 Vancomycin Trough 13.7 ug/mL (15-20) L 12/12/20 08:28 SARS-CoV-2 (PCR) Negative (NEGATIVE) 12/09/20 12:48 Influenza Type A (PCR) Negative (NEGATIVE) 12/09/20 12:48 Influenza Type B (PCR) Negative (NEGATIVE) 12/09/20 12:48 RSV (PCR) Negative (NEGATIVE) 12/09/20 12:48 Tissue Pathology To follow 12/10/20 12:20 - Assessment and Plan 1: post op great toe amputation Lt foot for gangrenous toe . DM . diabetic neuropathy . PVD . same plan . - Problem Patient Problems: Patient Problems Gangrene of toe of left foot (Acute) I96 Osteomyelitis of great toe of left foot (Acute) M86.9
[2020-12-12] MEDS: NORCO 7.5/325 MG TAB PO PRN (13:33)
[2020-12-13] MEDS: LR 1000 ML IV 1,000 ML IV SCH ×3 (02:30→17:19)
[2020-12-13] MEDS: ZOSYN VIAL 2.25 GRAMS 2.25 G in NS 100 ML IV + SPIKE MINIBAG* 100 ML IV SCH ×3 (06:05→23:40)
[2020-12-13 06:24] LABS: BASOPHILS # (AUTO) 0.3 X10^3/uL (0.0-0.1); BASOPHILS % (AUTO) 2.5 % (0.2-1.0); EOSINOPHILS # (AUTO) 0.3 x10^3/uL (0.0-0.2); EOSINOPHILS % (AUTO) 2.4 % (0.9-2.9); HEMATOCRIT 43.7 % (42.0-54.0); HEMOGLOBIN 15.1 g/dL (13.5-18.0); LYMPHOCYTES # (AUTO) 1.8 X10^3/uL (1.3-2.9); LYMPHOCYTES % (AUTO) 17.4 % (21.0-51.0); MEAN CORPUSCULAR HEMOGLOBIN 28.4 pg (27.0-34.0); MEAN CORPUSCULAR HGB CONC 34.7 g/dL (33.0-35.0); MEAN CORPUSCULAR VOLUME 81.9 fL (80.0-100.0); MEAN PLATELET VOLUME 8.7 fL (7.4-11.0); MONOCYTES # (AUTO) 0.7 x10^3/uL (0.3-0.8); MONOCYTES % (AUTO) 6.9 % (0.0-13.0); NEUTROPHILS # (AUTO) 7.4 x10^3/uL (2.2-4.8); NEUTROPHILS % (AUTO) 70.8 % (42.0-75.0); PLATELET COUNT 203 X10^3/uL (150.0-450.0); RED BLOOD COUNT 5.33 X10^6/uL (4.7-6.0); RED CELL DISTRIBUTION WIDTH 14.2 % (11.6-16.5); WHITE BLOOD COUNT 10.4 X10^3/uL (3.6-10.0)
[2020-12-13 06:34] LABS: BLOOD UREA NITROGEN 13 mg/dL (7-18); CALCIUM 9.3 mg/dL (8.5-10.1); CHLORIDE 103 mmol/L (98-107); COR NA(FOR HYPERGLY) 142 mmol/L (136-145); CREATININE 0.88 mg/dL (0.70-1.30); SODIUM 140 mmol/L (136-145); eGFR NON BLACK RACES > 60 (>60)
[2020-12-13] MEDS: VANCOMYCIN IV *PREMIX 1 G/200 ML BAG 1 G/200 ML PIGGYBACK IV SCH ×2 (08:09→22:29)
[2020-12-13] MEDS: ACTOS PO SCH (08:12)
[2020-12-13] MEDS: GLUCOPHAGE PO SCH ×2 (08:13→22:05)
[2020-12-13] MEDS: INVOKANA PO SCH (08:13)
[2020-12-13] MEDS: ZESTRIL TAB 40 MG PO SCH (08:13)
--- NOTE | 2020-12-13 08:23 | DR.PROGNOT ---
Hospital Progress Notes - Progress Note for Day of: Progress Note Date: 12/13/20 - Chief Complaint Chief Complaint: PO amputation of the great toe and 1st metatarsal head Lt foot . no c/o . BS 171... WBC 10.4. dressing was changed : no ischemia , infection or necrosis . - Past Medical Family Social History Past Med/Fam/Surg Hx: No changes since H&P Allergies: Allergies No Known Drug Allergies Allergy (Verified 09/28/20 18:05) - Review Of Systems ROS: No change since H&P - Vital Signs Vital Signs: Temperature 98.3 F Pulse Rate [Right Brachial] 66 Pulse Rate [Bilateral Radial] 55 Pulse Rate 61 Respiratory Rate 18 Blood Pressure [Right Arm] 153/72 Blood Pressure [Left Arm] 168/86 Blood Pressure 162/90 O2 Sat by Pulse Oximetry 96 - Physical Exam Oriented: Normal Eyes: Normal Ear: Normal Nose: Normal Throat: Normal Respiratory: Normal Cardiovascular: Normal Skin: Other (clean incision Lt foot . palpable dorsalis pedis and posterior tibial with doppler .) Mood Description: Calm Speech Pattern: Clear, Appropriate - Laboratory and Diagnostics Result Diagrams: 12/13/20 05:18 12/13/20 05:18 Labs: Laboratory WBC 10.4 X10^3/uL (3.6-10.0) H 12/13/20 05:18 RBC 5.33 X10^6/uL (4.7-6.0) 12/13/20 05:18 Hgb 15.1 g/dL (13.5-18.0) 12/13/20 05:18 Hct 43.7 % (42.0-54.0) 12/13/20 05:18 MCV 81.9 fL (80.0-100.0) 12/13/20 05:18 MCH 28.4 pg (27.0-34.0) 12/13/20 05:18 MCHC 34.7 g/dL (33.0-35.0) 12/13/20 05:18 RDW 14.2 % (11.6-16.5) 12/13/20 05:18 Plt Count 203 X10^3/uL (150.0-450.0) 12/13/20 05:18 MPV 8.7 fL (7.4-11.0) 12/13/20 05:18 Neut % (Auto) 70.8 % (42.0-75.0) 12/13/20 05:18 Lymph % (Auto) 17.4 % (21.0-51.0) L 12/13/20 05:18 [place] % (Auto) 6.9 % (0.0-13.0) 12/13/20 05:18 Eos % (Auto) 2.4 % (0.9-2.9) 12/13/20 05:18 Baso % (Auto) 2.5 % (0.2-1.0) H 12/13/20 05:18 Neut # (Auto) 7.4 x10^3/uL (2.2-4.8) H 12/13/20 05:18 Lymph # (Auto) 1.8 X10^3/uL (1.3-2.9) 12/13/20 05:18 [place] # (Auto) 0.7 x10^3/uL (0.3-0.8) 12/13/20 05:18 Eos # (Auto) 0.3 x10^3/uL (0.0-0.2) H 12/13/20 05:18 Baso # (Auto) 0.3 X10^3/uL (0.0-0.1) H 12/13/20 05:18 Absolute Nucleated RBC 0.2 /100WBC 12/13/20 05:18 PT 12.2 SECONDS (11.8-14.3) 12/09/20 12:40 INR Target Range - 12/09/20 12:40 INR 0.95 (0.8-1.3) 12/09/20 12:40 APTT 29.2 SECONDS (22.9-36.5) 12/09/20 12:40 PTT Comment - 12/09/20 12:40 Sodium 140 mmol/L (136-145) 12/13/20 05:18 Corrected Sodium 142 mmol/L (136-145) 12/13/20 05:18 Potassium 3.8 mmol/L (3.5-5.1) 12/13/20 05:18 Chloride 103 mmol/L (98-107) 12/13/20 05:18 Carbon Dioxide 26.0 mmol/L (21-32) 12/13/20 05:18 BUN 13 mg/dL (7-18) 12/13/20 05:18 Creatinine 0.88 mg/dL (0.70-1.30) 12/13/20 05:18 Est GFR (MDRD) Af Amer > 60 (>60) 12/13/20 05:18 Est GFR (MDRD) Non-Af > 60 (>60) 12/13/20 05:18 Glucose 169 mg/dL (65-99) H 12/13/20 05:18 POC Glucose (mg/dL) 171 mg/dL (65-99) H 12/13/20 05:25 Hemoglobin A1c 11.8 % 12/11/20 05:27 Calcium 9.3 mg/dL (8.5-10.1) 12/13/20 05:18 Corrected Calcium 10.0 mg/dL (8.5-10.1) 12/12/20 05:48 Total Bilirubin 0.70 mg/dL (0.2-1.0) 12/12/20 05:48 AST 9 Units/L (15-37) L 12/12/20 05:48 ALT 12 Units/L (12-78) 12/12/20 05:48 Alkaline Phosphatase 60 Units/L (46-116) 12/12/20 05:48 Total Protein 6.6 g/dL (6.4-8.2) 12/12/20 05:48 Albumin 2.8 g/dL (3.4-5.0) L 12/12/20 05:48 Globulin 3.8 g/dL (2.5-4.5) 12/12/20 05:48 Albumin/Globulin Ratio 0.7 Ratio (1.1-2.1) L 12/12/20 05:48 Vancomycin Trough 13.7 ug/mL (15-20) L 12/12/20 08:28 SARS-CoV-2 (PCR) Negative (NEGATIVE) 12/09/20 12:48 Influenza Type A (PCR) Negative (NEGATIVE) 12/09/20 12:48 Influenza Type B (PCR) Negative (NEGATIVE) 12/09/20 12:48 RSV (PCR) Negative (NEGATIVE) 12/09/20 12:48 Tissue Pathology To follow 12/10/20 12:20 - Assessment and Plan 1: post op great toe amputation Lt foot for gangrenous toe . DM . diabetic neuropathy . PVD . to follow in one week . - Problem Patient Problems: Patient Problems Gangrene of toe of left foot (Acute) I96 Osteomyelitis of great toe of left foot (Acute) M86.9
[2020-12-13] MEDS ORDERED: HEPARIN SODIUM IN D5W 75,000 UNITS/1,500 ML BAG ONE (10:42)
[2020-12-13] MEDS ORDERED: HEPARIN SODIUM INJ 5000 UNITS ONE (10:42)
[2020-12-13] MEDS ORDERED: NS 1000 ML 1,000 ML ONE ×2 (10:43→12:23)
[2020-12-13] MEDS ORDERED: MARCAINE or SENSORCAINE 0.25% WITH EPI IJ ONE (10:44)
[2020-12-13] MEDS ORDERED: FENTANYL VIAL INJ 100 mcg ONE (10:48)
[2020-12-13] MEDS ORDERED: DECADRON INJ ONE (10:48)
[2020-12-13] MEDS ORDERED: TORADOL 30 MG VIAL ONE (10:48)
[2020-12-13] MEDS ORDERED: OFIRMEV IV 1000 MG VIAL 1,000 MG/100 ML VIAL IV ONE (10:48)
[2020-12-13] MEDS ORDERED: DIPRIVAN VIAL 60 ML ONE (10:48)
--- NOTE | 2020-12-13 11:14 | DR.H&P ---
H&P History & Physical for Day of: H&P Date: 12/13/20 Chief Complaint Chief Complaint: Gangrenous left great toe Allergies Allergies Allergy/AdvReac Type Severity Reaction Status Date / Time No Known Drug Allergies Allergy Verified 09/28/20 18:05 History of Present Illness History of Present Illness: 55-year-old male with history of significant peripheral vascular disease which resulted in gangrene of the right great toe over a year ago with subsequent right above knee amputation. Now presents with gangrenous changes of the left great toe. No history of coronary artery disease status post myocardial infarction 2009 status post stent placement. No stress test since that time. No further chest pain. Patient is a heavy tobacco abuse or. He has a history of diabetes as well. CT angiogram performed in September of this year so significant disease of the left superficial femoral artery, left popliteal artery and left tibial peroneal trunk. H&P is not been completed. He was admitted on December 09, 2020. He was placed on IV antibiotics and has subsequently had left a great toe ray amputation with primary closure. Due to the findings on the CT angiogram he will require intervention to prevent limb loss of the left leg. Past Medical History Past Medical History: Coronary Artery Disease, Dementia, Diabetes, Hypertension and [place] (Status post stenting of coronary artery 2009. No further chest pain noted.) Past Surgical History Surgical History: Angioplasty/Stents and Ortho Surgery Additional Surgical History: right above knee amputation Family History Family Medical History: Diabetes Mellitus Social History Does patient currently use any type of tobacco product: Yes Have you used tobacco products in the last 12 months: Yes Type of Tobacco Use: Cigarettes How many years tobacco product used: 38 Packs per day or dips/chews per day: 1/2 Does any household member use tobacco: No Alcohol Use: None Drug Use: None Medications Home Medications: No Known Drug Allergies Allergy (Verified 09/28/20 18:05) CONTINUE taking the following medications NK 12/11/20 [History] Labs Result Diagrams: 12/13/20 05:18 12/13/20 05:18 Labs: Laboratory WBC 10.4 X10^3/uL (3.6-10.0) H 12/13/20 05:18 RBC 5.33 X10^6/uL (4.7-6.0) 12/13/20 05:18 Hgb 15.1 g/dL (13.5-18.0) 12/13/20 05:18 Hct 43.7 % (42.0-54.0) 12/13/20 05:18 MCV 81.9 fL (80.0-100.0) 12/13/20 05:18 MCH 28.4 pg (27.0-34.0) 12/13/20 05:18 MCHC 34.7 g/dL (33.0-35.0) 12/13/20 05:18 RDW 14.2 % (11.6-16.5) 12/13/20 05:18 Plt Count 203 X10^3/uL (150.0-450.0) 12/13/20 05:18 MPV 8.7 fL (7.4-11.0) 12/13/20 05:18 Neut % (Auto) 70.8 % (42.0-75.0) 12/13/20 05:18 Lymph % (Auto) 17.4 % (21.0-51.0) L 12/13/20 05:18 [place] % (Auto) 6.9 % (0.0-13.0) 12/13/20 05:18 Eos % (Auto) 2.4 % (0.9-2.9) 12/13/20 05:18 Baso % (Auto) 2.5 % (0.2-1.0) H 12/13/20 05:18 Neut # (Auto) 7.4 x10^3/uL (2.2-4.8) H 12/13/20 05:18 Lymph # (Auto) 1.8 X10^3/uL (1.3-2.9) 12/13/20 05:18 [place] # (Auto) 0.7 x10^3/uL (0.3-0.8) 12/13/20 05:18 Eos # (Auto) 0.3 x10^3/uL (0.0-0.2) H 12/13/20 05:18 Baso # (Auto) 0.3 X10^3/uL (0.0-0.1) H 12/13/20 05:18 Absolute Nucleated RBC 0.2 /100WBC 12/13/20 05:18 PT 12.2 SECONDS (11.8-14.3) 12/09/20 12:40 INR Target Range - 12/09/20 12:40 INR 0.95 (0.8-1.3) 12/09/20 12:40 APTT 29.2 SECONDS (22.9-36.5) 12/09/20 12:40 PTT Comment - 12/09/20 12:40 Sodium 140 mmol/L (136-145) 12/13/20 05:18 Corrected Sodium 142 mmol/L (136-145) 12/13/20 05:18 Potassium 3.8 mmol/L (3.5-5.1) 12/13/20 05:18 Chloride 103 mmol/L (98-107) 12/13/20 05:18 Carbon Dioxide 26.0 mmol/L (21-32) 12/13/20 05:18 BUN 13 mg/dL (7-18) 12/13/20 05:18 Creatinine 0.88 mg/dL (0.70-1.30) 12/13/20 05:18 Est GFR (MDRD) Af Amer > 60 (>60) 12/13/20 05:18 Est GFR (MDRD) Non-Af > 60 (>60) 12/13/20 05:18 Glucose 169 mg/dL (65-99) H 12/13/20 05:18 POC Glucose (mg/dL) 142 mg/dL (65-99) H 12/13/20 10:50 Hemoglobin A1c 11.8 % 12/11/20 05:27 Calcium 9.3 mg/dL (8.5-10.1) 12/13/20 05:18 Corrected Calcium 10.0 mg/dL (8.5-10.1) 12/12/20 05:48 Total Bilirubin 0.70 mg/dL (0.2-1.0) 12/12/20 05:48 AST 9 Units/L (15-37) L 12/12/20 05:48 ALT 12 Units/L (12-78) 12/12/20 05:48 Alkaline Phosphatase 60 Units/L (46-116) 12/12/20 05:48 Total Protein 6.6 g/dL (6.4-8.2) 12/12/20 05:48 Albumin 2.8 g/dL (3.4-5.0) L 12/12/20 05:48 Globulin 3.8 g/dL (2.5-4.5) 12/12/20 05:48 Albumin/Globulin Ratio 0.7 Ratio (1.1-2.1) L 12/12/20 05:48 Vancomycin Trough 13.7 ug/mL (15-20) L 12/12/20 08:28 SARS-CoV-2 (PCR) Negative (NEGATIVE) 12/09/20 12:48 Influenza Type A (PCR) Negative (NEGATIVE) 12/09/20 12:48 Influenza Type B (PCR) Negative (NEGATIVE) 12/09/20 12:48 RSV (PCR) Negative (NEGATIVE) 12/09/20 12:48 Tissue Pathology To follow 12/10/20 12:20 Review of Systems Constitutional: No Symptoms Reported Eyes: No Symptoms Reported ENT: No Symptoms Reported Respiratory: No Symptoms Reported Cardiovascular: No Symptoms Reported and Other (gangrenous changes left great toe and plain x-tays shows some gas in the tissues) Gastrointestinal: No Symptoms Reported Genitourinary: No Symptoms Reported Musculoskeletal: Leg Pain (left leg pain and left great toe ,had ray amputation left great toe last week. ) Skin: No Symptoms Reported Neurological: No Symptoms Reported Physical Exam Vital Signs: Temperature 98.3 F Pulse Rate [Right Brachial] 66 Pulse Rate [Bilateral Radial] 55 Pulse Rate 61 Respiratory Rate 18 Blood Pressure [Right Arm] 153/72 Blood Pressure [Left Arm] 168/86 Blood Pressure 162/90 O2 Sat by Pulse Oximetry 96 Oriented: Normal, Time, Person and Place Eyes: Normal Ear: Normal Nose: Normal Throat: Normal Respiratory: Clear Throughout Cardiovascular: Normal and Other (Probable femoral pulses bilaterally. Healed right above knee stump. I cannot palpate distal pulses of the left ankle or foot.) : Normal Auscultation: Bowel Sounds: Normal Palpation: Normal Tenderness: Normal Skin: Normal Musculoskeletal: Crepitance (left great toe on admission) Mood Description: Calm Assessment/Plan (1) Ischemic foot pain at rest: Status: Acute Plan: This patient is already had ray amputation a left great toe. He now needs peripheral intervention of the multiple areas of stenosis left leg to prevent limb loss I explained the procedure to him as well as risk and benefits which also includes limb loss and possible . He understands and agrees to proceed.. Review H&P Reviewed: Yes
[2020-12-13] MEDS ORDERED: ANCEF 1 GRAM IV PREMIX* 1 G/50 ML BAG IV ONE (11:37)
[2020-12-13] MEDS ORDERED: APRESOLINE INJ 20 MG VIAL ONE (12:06)
--- NOTE | 2020-12-13 13:50 | OR.IMMED ---
IMMEDIATE POST-OP NOTE Immediate Post-Op Note Pre-Op Diagnosis: Critical limb ischemia left leg s/p amputation left gangrenou s great toe. Post-Op Diagnosis: Same Procedure: aortogram, arteriogram RLE, selective catherization left PT artery, athrectomy and balloon angioplasty left posterior tibial artery and athrectomy and DCB angioplasty left popliteal left SFA arteries Description of Procedure: see operative summary Surgeon/Replenishment Buyer: Nadege Findings: diffuse disease entire SFA, critical stenosis left posterior tibial artery, left tib-peroneal trunk, left popliteal and left SFA ( just above adductor canal) Specimens Removed: one Estimated Blood Loss: < 25 cc Drains: NONE Complications: none Progress Notes: to floor, continue IV antibiotics Condition: Stable Final Diagnosis: critical limb threatening ischemia left leg, gangrene left great toe.
[2020-12-13] MEDS ORDERED: PLAVIX PO STA (13:57)
[2020-12-13] MEDS: HumuLIN R SC PRN ×2 (16:00→22:15)
[2020-12-13] MEDS ORDERED: GLUCOPHAGE ONE (21:13)
[2020-12-13 21:47] LABS: CREATININE 1.19 mg/dL (0.70-1.30); VANCOMYCIN,TROUGH 14.6 ug/mL (15-20)
[2020-12-14] MEDS: LR 1000 ML IV 1,000 ML IV SCH (01:50)
[2020-12-14] MEDS: ZOSYN VIAL 2.25 GRAMS 2.25 G in NS 100 ML IV + SPIKE MINIBAG* 100 ML IV SCH (05:35)
[2020-12-14 08:40] VITALS: BP 132/76
[2020-12-14] MEDS ORDERED: CIPRO TAB 500 MG PO SCH (09:00)
[2020-12-14] MEDS ORDERED: PLAVIX PO SCH (09:00)
[2020-12-14 23:29] LABS: ALANINE AMINOTRANSFERASE 11 Units/L (12-78); ALBUMIN 3.1 g/dL (3.4-5.0); ALKALINE PHOSPHATASE 56 Units/L (46-116); ASPARTATE AMINO TRANSFERASE 15 Units/L (15-37); TOTAL PROTEIN 6.6 g/dL (6.4-8.2)
--- NOTE | 2020-12-16 14:15 | DR.OPNOTE ---
OP NOTE Pre-Op Diagnosis: REst pain left lower extremity gangrene left great toe. Post-Op Diagnosis: Same Procedure Date Date Of Procedure: 12/13/20 Procedure: The patient was taken to the operating suite and placed in the supine position and given IV sedation which was supervised by myself. Right groin and entire left leg prepped and draped in sterile fashion. Timeout for the procedure obtained. Ultrasonography used to identify the right common femoral artery and the skin overlying it infiltrated with 0.5% Marcaine with epinephrine. Ultrasonography used to guide puncture of the right common femoral artery and a 0.014 inch guidewire placed. Incision made over the guidewire at the skin edge and micro puncture sheath placed over the guidewire into the right common femoral artery. The 0.014 inch wire exchanged for a 0.035 inch [employer]vantage guidew balta and the micro puncture sheath exchanged for a 5 Nepali vascular sheath . Patient given 5000 units of heparin intravenously .Omni catheter placed over the guidewire into the aorta and diagnostic aortogram carried out showing normal aorta, common iliac, sports management intern iliac and external iliac arteries bilaterally. Omni catheter used to guide the guidewire into the left side and the Omni catheter exchanged for a trailblazer catheter and sequential arteriogram of the entire left lower extremity carried out showing significant stenosis of the take off the left posterior tibial artery, significant disease of the left tibial peroneal trunk, significant disease of the left popliteal artery and significant disease of the left superficial femoral artery. At this point we exchanged the short sheath in the right groin for a 7 Nepali destination sheet and and exchanged the trailblazer catheter for the Jetstream atherectomy device which was used to reform atherectomy of the left superficial femoral artery, left popliteal artery, left tibial peroneal trunk and the proximal left posterior tibial artery. The atherectomy device was removed. The posterior tibial artery was ballooned open with a 3 mm x 100 mm [employer] Kg balloon. The tibial peroneal trunk was ballooned open with a 4 mm x 100 mm [employer] [place] drug-coated balloon which was held open for 3 minutes. This was removed and the popliteal artery ballooned open with a [employer] 4 mm x 100 mm [place] drug-coated balloon for 3 minutes .The superficial femoral artery then ballooned open with a 5 mm x 200 mm [employer] [place] drug-coated balloon also dilated for 3 minutes . Post procedure arteriogram showed excellent result. The 0.035 inch wire was pulled back into the aorta as was the destination sheath and the destination sheet exchanged for an Angioseal closure device used to close the puncture in the right common femoral artery. Patient had excellent Doppler signasl at the ankle at the completion of the procedure. Type of Anesthesia: Local Anesthesia Comment: MAC Findings: Significant stenosis of the left superficial femoral artery, left popliteal artery, left tibial peroneal trunk artery and left proximal posterior tibial artery. Specimen/Pathology: none Total Amount of Fluid Infused:: 600 cc Urine output: 300 cc EBL: < 25 cc Drains/Tubes Placed: None Complications:: none Needle/Sponge Count:: correct Disposition/Condition: Pt. tolerated procedure without difficulty. Taken to PACU in stable condition.
== END 2020-12-14 08:02 | disposition home or self-care (01) | DRG 271 ==
LOC: ER 11:28 → MED/SURG 14:06
PROVIDERS: ADMIT Obstetrics & Gynecology Obstetrics; ATTEND Obstetrics & Gynecology Obstetrics
DX: E11.65 Type 2 diabetes mellitus with hyperglycemia; M86.8X7 Other osteomyelitis, ankle and foot; E11.69 Type 2 diabetes mellitus with other specified complication; I96 Gangrene, not elsewhere classified; Z20.822 Contact with and (suspected) exposure to COVID-19; I25.10 Atherosclerotic heart disease of native coronary artery without angina pectoris; I70.222 Atherosclerosis of native arteries of extremities with rest pain, left leg; E11.52 Type 2 diabetes mellitus with diabetic peripheral angiopathy with gangrene; R26.89 Other abnormalities of gait and mobility